=== PATIENT | male | born 1970 | race Caucasian/White ===

== ENCOUNTER 2016-08-04 10:51 | Emergency (ER) | payer BC, OTHER ==
[2016-08-04 10:55] VITALS: BP 146/94; BMI 42.5
--- NOTE | 2016-08-04 11:06 | DR.GENAD ---
HPI - PCP Primary Care Physician: DR. DUNLAP - Complaint/Symptoms Chief Complaint:: PATIENT STATED THAT HE FEELS LIKE HE HAS A BLOOD CLOT. PAIN IS IN THE RIGHT FA. STARTED HURTING ABOUT A 1.5 AGO. - Nurses notes reviewed Nurses Notes Review: Yes - Source History Provided: Patient - Mode of Arrival Mode of Arrival: Ambulatory - Timing Onset of Chief Complaint: 08/04/16 Came on: Suddenly - Duration Duration: Constant How lon Duration: Hours - Location Location: right arm - Severity Severity: Moderate - Modifying Factors Worsens:: movement - Associated Signs and Symptoms Associated Signs and Symptoms: pain worse with movement PMH - PMH Past Medical History: Yes Past Medical History: Anxiety, Depression, GERD, Hypertension Past Surgical History: Yes Past Surgical History Comment: KIDNEY - Family History History of Family Medical Conditions: No - Social History Type of Tobacco Use: Smokeless Does any household member use tobacco: No Alcohol Use: None Do you use any recreational Drugs:: No Lives With: Family Lives Where: Home - infectious screening In the last 2 months have you had wt loss of >10#?: NO Have you had fever, night sweats or hemotysis?: No Have you traveled outside the country in the last 6 months?: No Isolation: Standard ROS - Review of Systems Constitutional: No Symptoms Reported Eyes: No Symptoms Reported ENTM: No Symptoms Reported Respiratoy: No Symptoms Reported Cardiovascular: No Symptoms Reported Gastrointestinal/Abdominal: No Symptoms Reported Genitourinary: No Symptoms Reported Neurological: No Symptoms Reported Musculoskeletal: Forearm (pain in one spot primarily) Integumentary: No Symptoms Reported Psychiatric: Depression All Other Systems: Reviewed and Negative PE - Vital Signs Vitals: Temperature 98.2 F Pulse Rate 69 Respiratory Rate 18 Blood Pressure [Right Arm] 137/67 Blood Pressure 146/94 O2 Sat by Pulse Oximetry 96 - General Limitations: No Limitations General Appearance: Alert, In No Apparent Distress - Head Head Exam: Normal Inspection - Eyes Eye exam: Normal Appearance, EOMI. negative: Scleral Icterus, Conjunctival Injection - ENT External Ear Exam: Normal External Inspection - Neck Neck Exam: Normal Inspection, Full ROM, Trachea Midline - Respiratory Respiratory Exam: negative: Accessory Muscle Use, Respiratory Distress - Extremities Extremities Exam: Normal Inspection, Full ROM, Tenderness - Neurologic Neurological Exam: Alert, Oriented X3, CN II-XII Intact - Psychiatric Psychiatric Exam: Flat Affect - Skin Skin Exam: Intact, Normal Color ROR - XRAY XRAY Interpreted by: Radiologist XRAY Findings: Doppler negative right forearm - Diagnosis Discharge Problem: Pain in arm, unspecified Qualifiers: Laterality: right Qualified Code(s): M79.601 - Pain in right arm - Discharge Plan Condition: Stable Prescriptions: Indomethacin [Indocin Cap 25 mg] 25 mg PO TID #30 cap Prednisone [Prednisone DS Dosepak 10 mg (12 day)] 1 alexey PO ONCE #1 alexey - Follow ups/Referrals Follow ups/Referrals: KEITH DUNLAP [Primary Care Provider] - 3 days - Instructions
[2016-08-04] MEDS ORDERED: TORADOL 60 MG VIAL IM ONE (11:09)
[2016-08-04] MEDS ORDERED: TORADOL 60 MG VIAL ONE (11:12)
--- NOTE | 2016-08-04 12:00 | VAS ---
HISTORY: Extremity pain, swelling, and edema Study: Right upper extremity Doppler venous ultrasound. TECHNIQUE: Multiple garcia scale and color flow Doppler images of the deep venous system were obtaine d of the upper extremity. FINDINGS: The deep venous system of the right upper extremity evaluated from the level of the inter nal jugular vein through the radial and ulnar veins. Normal color flow and augmentation can be obse rved. In addition, normal compression is seen throughout the upper extremity deep venous system. No soft tissue hematoma is seen. IMPRESSION: 1. Negative examination for DVT. Reported By:
== END 2016-08-04 12:46 | disposition home or self-care (01) ==
LOC: ER 10:58
DX: M79.601 Pain in right arm (principal)
CPT/HCPCS: 93971; 96372; 99282; J1885

== ENCOUNTER 2016-11-22 18:03 | Emergency (ER) | payer BC ==
[2016-11-22 18:08] VITALS: BMI 41.8
[2016-11-22] MEDS ORDERED: ASPIRIN ONE (18:13)
[2016-11-22] MEDS ORDERED: ASPIRIN PO ONE (18:40)
[2016-11-22] MEDS ORDERED: NITROSTAT SL PRN (18:44)
--- NOTE | 2016-11-22 18:46 | DR.GENAD ---
HPI - PCP Primary Care Physician: STEFANY - HPI Comment HPI Comment: c/p - Complaint/Symptoms Chief Complaint Doctors Comments: Midsternal chest pain, onset morning on day of E/R visit. There was no radiation. Outpt. BP check was 150s/120s. he took an extra dose of Amlodipine. Someone gave him S/L NTG X 1. There is no radiation, SOB or diaphoresis. He was exposed to concrete glue being grounded off floor at a costruction site on day before symptom onset. Also, he had been out of both of his BP meds. Chief Complaint:: PT C/O CHEST PAIN, SOB, HTN THAT STARTED THIS AM. PT HAS TAKEN X1 NITRO, AMLODIPINE. PT STATES THE HIGHEST HIS BLOOD PRESSURE HAS BEEN 155/122. PT STATES HIS CHEST PAIN IS MIDSTERNAL. Self Treatment fo Chief Complaint: aas above - Source History Provided: Patient - Mode of Arrival Mode of Arrival: Ambulatory - Timing Onset of Chief Complaint: 11/22/16 - Modifying Factors Worsens:: deep inspiration Improves:: nothing - Associated Signs and Symptoms Associated Signs and Symptoms: none PMH - PMH Past Medical History: Yes Past Medical History: Anxiety, Depression, GERD, Hypertension Past Medical History Comment: Renal Carcinoma;Pericarditis Past Surgical History: Yes Past Surgical History Comment: PARTIAL NEPRECTOMY (CA) - Family History History of Family Medical Conditions: No - Social History Does any household member use tobacco: No Alcohol Use: None Do you use any recreational Drugs:: No Lives With: Family Lives Where: Home - infectious screening In the last 2 months have you had wt loss of >10#?: NO Have you had fever, night sweats or hemotysis?: No Have you traveled outside the country in the last 6 months?: No Isolation: Standard ROS - Review of Systems Constitutional: No Symptoms Reported Eyes: No Symptoms Reported ENTM: No Symptoms Reported Respiratoy: No Symptoms Reported Cardiovascular: Chest Pain Gastrointestinal/Abdominal: No Symptoms Reported Genitourinary: No Symptoms Reported Neurological: No Symptoms Reported Musculoskeletal: No Symptoms Reported Integumentary: No Symptoms Reported Hematologic/Lymphatic: No Symptoms Reported Endocrine: No Symptoms Reported Psychiatric: No Symptoms Reported All Other Systems: Reviewed and Negative PE - Vital Signs Vitals: Temperature 99.6 F Pulse Rate [Apical] 90 Pulse Rate 106 Respiratory Rate 17 Blood Pressure [Right Arm] 133/79 Blood Pressure 140/98 O2 Sat by Pulse Oximetry 98 - General Limitations: No Limitations General Appearance: Alert, In No Apparent Distress - Head Head Exam: Normal Inspection - Eyes Eye exam: Normal Appearance - ENT ENT Exam: Normal Exam External Ear Exam: Normal External Inspection TM/Canal Exam: Bilateral Normal Nose Exam: Normal Nose Exam Mouth Exam: Normal Inspection Throat Exam: Normal Inspection - Neck Neck Exam: Normal Inspection - Chest Chest Inspection: Normal Inspection - Respiratory Respiratory Exam: Normal Lung Sounds Bilat Respiratory Exam: Bilateral Clear to Auscultation - Cardiovascular Cardiovascular Exam: Regular Rate, Normal Rhythm - Abdominal Exam Abdominal Exam: Normal Inspection, Normal Bowel Sounds, Soft - Extremities Extremities Exam: Normal Inspection - Back Back Exam: Normal Inspection - Neurologic Neurological Exam: Alert, Oriented X3 - Psychiatric Psychiatric Exam: Normal Affect, Normal Mood - Skin Skin Exam: Warm, Dry, Intact, Normal Color Course - Reevaluation 1st: Improved ROR - Labs Reviewed Result Diagrams: 11/22/16 18:55 11/22/16 18:55 Laboratory: WBC 8.9 X10^3/uL (3.6-10.0) 11/22/16 18:55 RBC 5.22 X10^6/uL (4.7-6.0) 11/22/16 18:55 Hgb 15.1 g/dL (13.5-18.0) 11/22/16 18:55 Hct 43.3 % (42.0-54.0) 11/22/16 18:55 MCV 83.0 fL (80.0-100.0) 11/22/16 18:55 MCH 28.9 pg (27.0-34.0) 11/22/16 18:55 MCHC 34.8 g/dL (33.0-35.0) 11/22/16 18:55 RDW 13.1 % (11.6-16.5) 11/22/16 18:55 Plt Count 194 X10^3/uL (150.0-450.0) 11/22/16 18:55 MPV 8.5 fL (7.4-11.0) 11/22/16 18:55 Neut % 62.0 % (42.0-75.0) 11/22/16 18:55 Lymph % 24.3 % (21.0-51.0) 11/22/16 18:55 [place] % 9.5 % (0.0-13.0) 11/22/16 18:55 Eos % 3.6 % (0.9-2.9) H 11/22/16 18:55 Baso % 0.6 % (0.2-1.0) 11/22/16 18:55 Neut # 5.5 x10^3/uL (2.2-4.8) H 11/22/16 18:55 Lymph # 2.2 X10^3/uL (1.3-2.9) 11/22/16 18:55 [place] # 0.9 x10^3/uL (0.3-0.8) H 11/22/16 18:55 Eos # 0.3 x10^3/uL (0.0-0.2) H 11/22/16 18:55 Baso # 0.1 X10^3/uL (0.0-0.1) 11/22/16 18:55 Absolute Nucleated RBC 0.0 /100WBC 11/22/16 18:55 INR Target Range - 11/22/16 18:55 INR 1.05 (0.8-1.3) 11/22/16 18:55 PTT 26.6 SECONDS (22.9-36.5) 11/22/16 18:55 PTT Comment - 11/22/16 18:55 D-Dimer 212 ng/mL (0-400) 11/22/16 18:55 Sodium 142 mmol/L (136-145) 11/22/16 18:55 Corrected Sodium TNP 11/22/16 18:55 Potassium 3.5 mmol/L (3.5-5.1) 11/22/16 18:55 Chloride 104 mmol/L (98-107) 11/22/16 18:55 Carbon Dioxide 30.8 mmol/L (21-32) 11/22/16 18:55 BUN 13 mg/dL (7-18) 11/22/16 18:55 Creatinine 1.28 mg/dL (0.70-1.30) 11/22/16 18:55 Est GFR (MDRD) Af Amer > 60 (>60) 11/22/16 18:55 Est GFR (MDRD) Non-Af > 60 (>60) 11/22/16 18:55 Glucose 103 mg/dL (65-99) H 11/22/16 18:55 Calcium 9.1 mg/dL (8.5-10.1) 11/22/16 18:55 Corrected Calcium TNP 11/22/16 18:55 Magnesium 1.5 mg/dL (1.7-2.9) L 11/22/16 18:55 Total Bilirubin 0.30 mg/dL (0.2-1.0) 11/22/16 18:55 AST 54 Units/L (15-37) H 11/22/16 18:55 ALT 83 Units/L (12-78) H 11/22/16 18:55 Alkaline Phosphatase 88 Units/L (46-116) 11/22/16 18:55 Creatine Kinase 326 Units/L (39-308) H 11/22/16 23:00 CK-MB (CK-2) 1.5 ng/mL (0-4.0) 11/22/16 23:00 CK/CKMB % Calc 0.5 % (<4) 11/22/16 23:00 Troponin I < 0.02 ng/mL (0-1.5) 11/22/16 23:00 Total Protein 8.0 g/dL (6.4-8.2) 11/22/16 18:55 Albumin 3.8 g/dL (3.4-5.0) 11/22/16 18:55 Globulin 4.2 g/dL (2.5-4.5) 11/22/16 18:55 Albumin/Globulin Ratio 0.9 Ratio (1.1-2.1) L 11/22/16 18:55 - Other Results Comments: d-dimer: 212 - XRAY XRAY Interpreted by: Both XRAY Findings: normal chest x-ray - EKG Rate: 92 [place]: Normal Rhythm: NSR Block: None Hypertrophy: None ST: Normal - Diagnosis Discharge Problem: Chest pain - Discharge Plan Disposition: 01 HOME, SELF-CARE Condition: Stable - Follow ups/Referrals Follow ups/Referrals: KEITH DUNLAP [Primary Care Provider] - 3 days - Instructions
[2016-11-22 19:03] LABS: BASOPHILS # (AUTO) 0.1 X10^3/uL (0.0-0.1); BASOPHILS % (AUTO) 0.6 % (0.2-1.0); EOSINOPHILS # (AUTO) 0.3 x10^3/uL (0.0-0.2); EOSINOPHILS % (AUTO) 3.6 % (0.9-2.9); HEMATOCRIT 43.3 % (42.0-54.0); HEMOGLOBIN 15.1 g/dL (13.5-18.0); LYMPHOCYTES # (AUTO) 2.2 X10^3/uL (1.3-2.9); LYMPHOCYTES % (AUTO) 24.3 % (21.0-51.0); MEAN CORPUSCULAR HEMOGLOBIN 28.9 pg (27.0-34.0); MEAN CORPUSCULAR HGB CONC 34.8 g/dL (33.0-35.0); MEAN PLATELET VOLUME 8.5 fL (7.4-11.0); MONOCYTES # (AUTO) 0.9 x10^3/uL (0.3-0.8); MONOCYTES % (AUTO) 9.5 % (0.0-13.0); NEUTROPHILS # (AUTO) 5.5 x10^3/uL (2.2-4.8); PLATELET COUNT 194 X10^3/uL (150.0-450.0); RED BLOOD COUNT 5.22 X10^6/uL (4.7-6.0); RED CELL DISTRIBUTION WIDTH 13.1 % (11.6-16.5); WHITE BLOOD COUNT 8.9 X10^3/uL (3.6-10.0)
--- NOTE | 2016-11-22 19:22 | RAD ---
EXAM: Chest X-ray INDICATION: Chest pain COMPARISION: No prior TECHNIQUE: AP, single view FINDINGS: The lungs are clear in the lung volumes are within normal limits. No pleural effusion or pneumothorax . The cardiac silhouette and mediastinum are normal. The regional skeleton is intact. IMPRESSION: Normal Chest X-Ray Reported By:
[2016-11-22 19:26] LABS: BLOOD UREA NITROGEN 13 mg/dL (7-18); CALCIUM 9.1 mg/dL (8.5-10.1); CARBON DIOXIDE 30.8 mmol/L (21-32); CHLORIDE 104 mmol/L (98-107); CREATININE 1.28 mg/dL (0.70-1.30); SODIUM 142 mmol/L (136-145); TROPONIN I < 0.02 ng/mL (0-1.5); eGFR BLACK RACES > 60 (>60); eGFR NON BLACK RACES > 60 (>60)
[2016-11-22 19:31] LABS: ALANINE AMINOTRANSFERASE 83 Units/L (12-78); ALBUMIN 3.8 g/dL (3.4-5.0); ALKALINE PHOSPHATASE 88 Units/L (46-116); ASPARTATE AMINO TRANSFERASE 54 Units/L (15-37); CKMB % 0.6 % (<4); CREATINE KINASE 358 Units/L (39-308); MAGNESIUM 1.5 mg/dL (1.7-2.9)
[2016-11-22] MEDS ORDERED: XOPENEX 1.25 MG/3 ML NEBULE NEB ONE ×2 (19:56→20:04)
[2016-11-22] MEDS ORDERED: DUONEB 0.5 MG/3 MG NEB ONE (19:56)
[2016-11-22 23:29] LABS: CKMB % 0.5 % (<4); CREATINE KINASE 326 Units/L (39-308); CREATINE KINASE MB 1.5 ng/mL (0-4.0); TROPONIN I < 0.02 ng/mL (0-1.5)
[2016-11-22 23:33] VITALS: BP 133/79
[2016-11-23] MEDS ORDERED: TORADOL 30 MG VIAL IVP ONE (00:28)
[2016-11-23] MEDS ORDERED: TORADOL 30 MG VIAL ONE (00:41)
== END 2016-11-23 00:57 | disposition home or self-care (01) ==
LOC: ER 18:17
DX: R07.89 Other chest pain (principal)
CPT/HCPCS: 36415; 71010; 80053; 82550; 82553; 83735; 84484; 85025; 85378; 85610; 85730; 93005; 93010; 94640; 96365; 96374; 99283; A4222; J1885

== ENCOUNTER → 2017-03-10 | Outpatient (CLI) | payer BC ==
--- NOTE | 2017-03-10 16:41 | RAD ---
Examination: Cervical spine, five views History: Radiculopathy, disability evaluation Findings: AP and lateral views were obtained, including lateral views in flexion and extension. There is minimal narrowing of the disc space at C5-6. Small marginal osteophyte. No subluxation or instabi lity demonstrated. Atlantoaxial complex intact and symmetric. Impression: No acute or significant abnormality demonstrated. Very mild degenerative changes at the C 5-6 interspace. Reported By:
--- NOTE | 2017-03-10 16:43 | RAD ---
Examination: Lumbar spine, five views History: Renal CA, disability evaluation Findings: AP and lateral views were obtained, including lateral views in flexion and extension. Yazmin l curvature, segmentation and alignment. There is no evidence for fracture, bone destruction, subluxa tion or localized disc deformity. Pedicles and sacroiliac joints are normal. There is normal sagittal motion demonstrated without evidence for instability. Impression: No significant abnormality demonstrated. Reported By:
--- NOTE | 2017-03-11 14:18 | MRI ---
STUDY: MRI OF THE CERVICAL SPINE HISTORY: Radiculopathy. Disability evaluation. Comparison: Cervical spine radiographs from March 10, 2017. Technique: An MRI of the cervical spine including sagittal T1, T2, and T2 STIR, axial T1, and T2 FSE images was performed using standard departmental protocol. Findings: Sagittal images: Visualized portions of the posterior fossa are within normal limits. The craniocervi alvarez junction is unremarkable. There is straightening of usual cervical lordosis. Vertebral body heigh ts and alignment are within normal limits. Marrow signal is age-appropriate. There is no evidence fo r fracture or significant bone marrow edema. There is no significant prevertebral soft tissue swelli ng. The surrounding paraspinal soft tissues are unremarkable. There is no evidence of cord compressi on. No intrinsic signal abnormalities are identified in the spinal cord itself. Axial images: C2 -- C3: There is vgpg-osucpsg-bhdf-right uncovertebral osteophyte formation. The central canal and neural foramina are adequate. C3 -- C4: There is posterior disc osteophyte complex and bilateral uncovertebral osteophyte formation . This results in mild central canal stenosis. The neural foramina are adequate. C4 -- C5: There is a disc osteophyte complex and bilateral uncovertebral osteophyte formation. The co mbination of these findings results in moderate central canal stenosis. The left neural foramen is ad equate. There is moderate right neural foraminal stenosis. C5 -- C6: There is a posterior disc osteophyte complex and bilateral uncovertebral osteophyte formati on. The combination of these findings results in a moderate to severe central canal stenosis. There i s moderate bilateral neural foraminal stenosis at this level. C6 -- C7: There is a posterior disc osteophyte complex and bilateral uncovertebral osteophyte formati on. The central canal and neural foramina are adequate. C7 -- T1: Normal. IMPRESSION: 1. Straightening of usual cervical lordosis. This finding may be positional or secondary to muscle sp asm. Clinical correlation is recommended. 2. Multilevel cervical spondylosis. 3. Moderate to severe spinal stenosis at C5/6. 4. Moderate spinal stenosis at C4/5. 5. Multilevel neural foraminal stenosis. Please see above for detail. Reported By:
--- NOTE | 2017-03-12 11:06 | CT ---
Indication: Radiculopathy. Renal cancer. Exam: CT scan lumbar spine without contrast. Technique: Axial spiral images were obtained from T12 through the lower sacrum and reconstructed in t he axial plane at 2 mm intervals with coronal and sagittal multiplanar reconstructions. Findings: There is gqre-no-xulsahck disc space narrowing throughout. No fracture or subluxation is se en. The paravertebral soft tissues are normal. The vertebral body height is well maintained throughou t. There are no pars defects seen. There is a mild to moderate central disc bulges at L3-4 and L4-5 c ausing moderate dural sac effacement and mild neuroforaminal narrowing bilaterally. There are moderat e hypertrophic changes of the facets throughout with congenital shortening of the pedicles causing di ffuse moderate spinal stenosis. The paravertebral soft tissues are normal. The bones are well mineral ized. Impression: Moderate degenerative disc changes throughout with no acute abnormality seen. Mild to moderate central disc bulges at L3-4 and L4-5 . Moderate osteoarthritic changes of the facets throughout and mild congenital shortening of the pedicl es causing diffuse moderate spinal stenosis. Reported By:
== END | disposition home or self-care (01) | DRG 74 ==
LOC: RAD 14:04
PROVIDERS: ATTEND Neurological Surgery
DX: M54.12 Radiculopathy, cervical region (principal); M54.16 Radiculopathy, lumbar region; M50.322 Other cervical disc degeneration at C5-C6 level; M51.26 Other intervertebral disc displacement, lumbar region; M48.061 Spinal stenosis, lumbar region without neurogenic claudication; M47.892 Other spondylosis, cervical region
CPT/HCPCS: 72050; 72110; 72131; 72141

== ENCOUNTER → 2017-07-23 | Outpatient (CLI) | payer BC ==
[~2017-07-23] MED LIST: NS 100 ML IV 100 ML IV ONE
--- NOTE | 2017-07-23 09:39 | RAD ---
HISTORY: Postsurgical neck pain Study: Cervical spine AP, lateral, swimmer's, odontoid, obliques Comparison: 03/10/2017 Findings: Since the prior examination the patient has undergone C4, 5, 6 anterior interbody fusion with hardwar e and disc spacers present. The alignment is normal. The vertebral bodies are of average height. The remainder the disc spaces are normal. The posterior elements are intact. Spondylitic foraminal narrow ing is present bilaterally C4-5, C5-6. The joints appear within normal limits. IMPRESSION: Postoperative changes as above Spondylitic foraminal narrowing C4-5, C5-6 bilaterally Reported By:
--- NOTE | 2017-07-23 09:47 | CT ---
HISTORY: Right side pain, renal cell carcinoma Study: CT abdomen pelvis with contrast Comparison: 04/21/2015 Technique: Axial post-contrast images with coronal and sagittal reformats. Dose reduction procedures were used with mA/kv adjusted for body size. Findings: The lung bases are clear. The liver, spleen, adrenal glands, and pancreas are within normal limits. N o opaque stones are present within the gallbladder. There is a benign fatty lesion in the inferior ri ght lobe of the liver. The right kidney is unobstructed and without stones or masses. Postsurgical ch anges appear to be present along the lateral aspect of the right upper pole. The left kidney is unobs tructed and without stones or masses. No ureteral calculi are identified. There is a right flank juan antonio ia present at the level of the upper pole of the right kidney. It contains mesenteric fat, cecum, and terminal ileum. Stool in contrast is present within the cecum and proximal ascending colon giving wh at is likely the false appearance of pneumatosis. No proximal obstruction is identified. There are no findings suggestive of diverticulitis or colitis. Calcific atherosclerotic changes present in a nond ilated abdominal aorta. No intraperitoneal or retroperitoneal lymphadenopathy of significance is iden tified. Examination of the pelvis demonstrated no evidence for pelvic masses, pelvic fluid, or pelvic lymphadenopathy. No bladder abnormality is identified. No lytic or blastic skeletal lesions are iden tified. IMPRESSION: Postsurgical changes lateral aspect right kidney. No evidence for tumor recurrence Moderately large right flank hernia containing the cecum and terminal ileum. No obstructive changes a re identified. Reported By:
== END | disposition home or self-care (01) ==
LOC: RAD 08:23
PROVIDERS: ATTEND Internal Medicine Hematology & Oncology
DX: C64.1 Malignant neoplasm of right kidney, except renal pelvis (principal); K45.8 Other specified abdominal hernia without obstruction or gangrene; M54.12 Radiculopathy, cervical region
CPT/HCPCS: 72050; 74177; A4222